=== PATIENT | male | born 2000 | race Caucasian/White ===

== ENCOUNTER → 2020-09-07 11:27 | Outpatient (CLI) | payer BC, SELFPAY ==
[2020-09-07 09:40] VITALS: BMI 29.3
[2020-09-07 12:14] LABS: Absolute Lymphocyte Count 1.86 X10^3/uL (0.83-4.51); Absolute Neutrophil Count 2.1 X10^3/uL (2.0-7.7); Basophil# 0.02 X10^3/uL; Basophil% 0.4 % (0-1); Eosinophil# 0.12 X10^3/uL; Eosinophils% 2.7 % (0-5); Hemoglobin 15.2 g/dL (13.0-16.5); Lymphocyte # 1.86 X10^3/ul (4.0); Lymphocyte % 41.2 % (19-41); Mean Corp Hgb Conc 33.8 g/dL (32-36); Mean Corpuscular Hgb 32.1 pg (27.0-32.0); Mean Corpuscular Volume 94.9 fL (80-94); Monocyte# 0.46 X10^3/uL; Monocyte% 10.2 % (0-10); NRBC Flagged by Analyzer 0 % (0-5); Neutrophil # 2.05 X10^3/uL (2.7-7.7); Neutrophil % 45.3 % (47-70); Platelet Count 252 K/mm3 (150-450); RBC Distribution Width CV 11.9 % (11.6-14.6); RBC Distribution Width SD 41.4 fl (35.1-43.9); Red Blood Count 4.74 M/mm3 (4.6-6.2); White Blood Count 4.5 K/mm3 (4.4-11.0)
[2020-09-07 12:41] LABS: Hemoglobin A1c 5.1 % (3.8-5.6)
[2020-09-07 12:53] LABS: Vitamin D,25 Hydroxy 12.8 ng/mL
[2020-09-07 13:07] LABS: ALB/GLOB Ratio 1.2 RATIO (0.9-2.4); AST(SGOT) 24 U/L (15-37); Alanine Aminotransfer ALT/SGPT 39 U/L (16-61); Albumin, Serum 4.1 g/dL (3.2-5.0); Alkaline Phosphatase 118 U/L (45-117); Anion Gap 6 (5-15); BUN 16 mg/dL (7-18); BUN/Creat Ratio 18.4 RATIO (10-20); Calcium,Total 9.1 mg/dL (8.5-10.1); Chloride 104 mmol/L (98-107); Cholesterol 158 mg/dL (200); Creatinine, Serum 0.87 mg/dL (0.70-1.30); EST Glomerular Filtration Rate 118 mL/min (>60); Est Glom Filt Rate - Afr Amer 142 mL/min (>60); Globulin 3.5 g/dL (2.2-4.2); Glucose 89 mg/dL (74-106); High Density Lipoprotein 54 mg/dL; Protein, Total 7.6 g/dL (6.4-8.2); Sodium Level 139 mmol/L (136-145); Thyroid Stim Hormone (TSH) 0.79 uIU/mL (0.358-3.74); Triglycerides 65 mg/dL; Very Low Density Lipoprotein 13 mg/dL (5-40)
== END ==
PROVIDERS: PCP Internal Medicine; Referring Provider Internal Medicine; Visit Provider Internal Medicine
DX: E11.9 Type 2 diabetes mellitus without complications (principal); E55.9 Vitamin D deficiency, unspecified; Z13.220 Encounter for screening for lipoid disorders
CPT/HCPCS: 36415; 80053; 80061; 82306; 83036; 84443; 85025

== ENCOUNTER → 2023-04-19 | Outpatient (CLI) | payer BC, SELFPAY ==
[2023-04-19 08:32] LABS: Mucous, Urine 0 SEEN /hpf (<or=2+); Red Blood Cells-Urine 0 SEEN /hpf (0-5); Squamous Epithelial Cells - UA 0 SEEN /hpf (0-5)
[2023-04-19 09:58] LABS: Color, Urine Yellow (Yellow); Glucose, Dipstick Normal (Normal); Ketone-Dipstick Negative (Negative); Leukocyte Esterase-Dipstick 500 /ul (Negative); Nitrite-Dipstick Negative (Negative); Occult Blood-Urine 10 /ul (Negative); Protein-Dipstick 15 mg/dl (Negative); Specific Gravity, Urine 1.015 (1.002-1.030); Urine Bilirubin Dipstick Negative (Negative); Urine Clarity Clear (Clear); Urine Urobilinogen Normal (Normal)
[2023-04-19 10:07] LABS: Bacteria RARE /hpf (None Seen); White Blood Cells 50-100 SEEN /hpf (0-5)
== END | disposition home or self-care (01) ==
PROVIDERS: PCP Internal Medicine; Visit Provider Physician Assistant
DX: R30.0 Dysuria (principal)
CPT/HCPCS: 81001; 87086

== ENCOUNTER → 2023-07-14 | Outpatient (CLI) | payer BC, SELFPAY ==
--- NOTE | 2023-07-14 06:49 | MRI_ITS ---
HISTORY: Tibial plateau pain after injury r/o plateau fracture. TECHNIQUE: Multiplanar and multisequence MR images of the LEFT knee were obtained without contrast. 197 images. COMPARISON: None. FINDINGS: BONE MARROW: Mild bone marrow edema of the lateral tibial plateau anteriorly and posteriorly. No acute fracture. JOINT SPACES: Alignment within normal limits without dislocation. Mild joint effusion. MENISCI: No medial or lateral meniscal tear. TENDONS: Intact quadriceps and patellar tendon mechanism. LIGAMENTS: Increased T2 signal and size the posterior cruciate ligament. No anterior cruciate ligament tear. Medial and lateral collateral ligaments also intact. CARTILAGE: Articular cartilage intact. SOFT TISSUES: 1.2 x 4.1 cm mildly heterogeneous subcutaneous fluid collection anteromedial to the proximal tibia. Mild lateral and medial subcutaneous edema. No popliteal cyst. MRI/Lower Ext Joint Only (Routine) IMPRESSION: Mild bone marrow contusions of the lateral tibial plateau without acute fracture. Sprain or partial tear of the posterior cruciate ligament. Pretibial subcutaneous hematoma extending medially. Mild joint effusion of the left knee. Electronically Signed: Ashley Matt MD at 11:53 EST ,
--- OUTSIDE RECORDS SUMMARY | 2023-07-14 07:21 | XMS RPT_ITS | CCD ---
Author Name Unknown Address [address] [place] [address] Organization [facility] Care Team Providers Care Utility Specialist Name Role Phone ARCHINAL, CHICA Unavailable Unavailable REFERRED, SELF Unavailable Unavailable ARCHINAL, CHICA Unavailable Unavailable Unavailable Primary Care Provider MELISSA Beckwith Referring Unavailable [facility] Primary Care Provider OLVIN Brody Referring Unavailable [facility] Primary Care Unavailable Problems Problem Classification Problem Date Documented Date Episodic/Chronic Administrative/social admission (4 sources) Patient encounter status; Translations: [Encounter for pre-employment examination] Onset: 07-02-2023 07-02-2023 Episodic Immunizations and screening for infectious disease (1 source) Encounter for screening for infections with a predominantly sexual mode of transmission; Translations: [Screening for STD (sexually transmitted disease)] Onset: 04-27-2023 Episodic Results Test Name Value Interpretation Reference Range Facil ity Encounters Encounter Date Encounter Type Care Provider Facility Start: 07-02-2023 End: 07-03-2023 ambulatory [facility] Start: 07-02-2023 End: 07-02-2023 Subsequent hospital visit by physician [facility] Ed Xr Exam Room 1 [facility] Radiology Procedures Date Procedure Procedure Detail Performing Clinician Start: 07-02-2023 Radiologic exam ches t single view Olvin Toure MD Work Phone: Start: 03-12-2020 Chest x-ray 1 view frontal Olvin Toure Work Phone: Plan of Treatment Date Care Activity Detail Author Start: 2059 RSV Immunization age d 60 or older (1 - 1-dose 60+ series) RSV Immunization aged 60 or older (1 - 1-dose 60+ series) [facility] Start: 2049 Zoster Vaccines (1 of 2) Zoster Vacc alice (1 of 2) [facility] Start: 02-28-2023 DTaP/Tdap/Td Vaccine s (7 - Td or Tdap) DTaP/Tdap/Td Vaccines (7 - Td or Tdap) [facility] Start: 02-02-2023 Influenza vaccination Influenza Vacc ine (#1) [facility] Start: 02-03-2020 Influenza vaccination Flu vaccine (# 1) [place], [place] Start: 2017 Hepatitis C screening Hepatitis C Sc reening [facility] Start: 2011 Depression Screening Depression Scre ening [facility] Start: 1999 Hepatitis B Vaccines (3 of 3 - 3-dose series) Hepatitis B Vaccines (3 of 3 - 3-dose series) [facility] Start: 1999 COVID-19 Vaccine (#1) COVID-19 Vacci ne (#1) [facility] Start: 1999 HIV screening HIV Screening [facility] OUTSIDE PROCEDURE SCAN OUTSIDE P ROCEDURE SCAN Procedures Ordered: 07/02/2023 [facility] Payers Date Payer Category Payer Unknown CORPORATE ACCOUN T [id number] 2023-Present ATTN OSIRIS MURRAY [address] [place] [address] Other [id number] 2023 Unknown [id number] 2022 Unknown [id number] Unknown [id number] Social History Date Type Detail Facility Tobacco smoking stat RUSTIS Unknown if ever smoked [place], [place] Start: 1999 Sex Assigned At Not on file [place], [place] Tobacco smoking stat RUSTIS Tobacco smoking consumption unknown [facility] Gender identity Not on file [facility] Progress note 04-23-2023 Note Date & Type Note Facility 04-23-2023 Note HNO ID: [id number] Author: Melissa Morton APRN.CAR SUPERVISOR Service: ? Author Type: Nurse Practitioner Type: Progress Notes Filed: 04/23/2023 6:48 PM Note Text: This note was created using NoteWriter. Mary Hernandez Keven is a 22 year old male. HPI by patient: David Evans is a 22 year old presenting to the office with the complaint of needing an std screening. Had urinary symptoms and was seen at [facility]. There was no testing done but he was treated with cipro based on symptoms. Wants to make sure he doesn't have an std. States I don't want to . Associated symptoms include nothing now. Had painful urination that improved with the cipro. Denies nausea, vomiting, back pain, abdominal pain, fever, lesions, and penile discharge. OTC not used. ALLERGIES No Known Allergies No family history on file. Active Ambulatory Problems No Active Ambulatory Problems Resolved Ambulatory Problems No Resolved Ambulatory Problems No Additional Past Medical History Review of Systems Constitutional: Negative. HENT: Negative. Eyes: Negative. Respiratory: Negative. Cardiovascular: Negative. Gastrointestinal: Negative. Endocrine: Negative. Genitourinary: Negative. Musculoskeletal: Negative. Skin: Negative. Neurological: Negative. Objective BP 154/93 Pulse 78 Resp 16 Wt 95.3 kg (210 lb) SpO2 98% Physical Exam Vitals reviewed. Constitutional: General: He is not in acute distress. Appearance: He is not ill-appearing, toxic-appearing or diaphoretic. Cardiovascular: Rate and Rhythm: Normal rate and regular rhythm. Pulmonary: Effort: Pulmonary effort is normal. Abdominal: General: Bowel sounds are normal. Palpations: Abdomen is soft. Tenderness: There is no abdominal tenderness. There is no right CVA tenderness, left CVA tenderness, guarding or rebound. Psychiatric: Behavior: Behavior is cooperative. Assessment and Plan (Z11.3) Screening for STD (sexually transmitted disease) (primary encounter diagnosis) Plan: SYPHILIS TOTAL W/REFLEX, HIV 1 2 COMBO(AG/AB),WITH REFLEX TO DIFFERENTIATION, HEPATITIS C ANTIBODY IA WITH CONFIRMATION, HEP B SURF AG SCRN, GONORRHEA/CHLAMYDIA NAAT, TRICHOMONAS VAGINALIS NAAT, URINE CULTURE UA is normal. Will send culture. -Urine to the lab. May go to any [facility] outpatient lab to have blood work complete. Will send Post-A-Vox code to activate, all results to Post-A-Vox. -No sexual contact until all results are final and all treatment is complete. -Aware that further treatment may be indicated based on results. -Warning symptoms: fever 101 F or higher, chills, flank pain, chest pain, or respiratory distress. -Be seen immediately with warning symptoms. If no improvement with Express Care treatment please be re-seen by primary care. May stop at the front maker to make a follow up to establish care. The patient will pursue further outpatient evaluation with the primary care physician or another Urgent Care/Express Care as outlined in the after visit summary. The patient is agreeable to this plan of care and follow-up instructions have been explained in detail. The patient has received these instructions in written format and have expressed an understanding of the after visit summary. Medical Decision Making: Level: 4 - Moderate I spent a total of 20 minutes on the date of the service which included preparing to see the patient, [id number] patient care, completing clinical documentation, obtaining and/or reviewing separately obtained history, performing a medically appropriate examination, counseling and educating the patient/family/caregiver, and ordering medications, tests, or procedures. [facility] Evaluation note Note Date & Type Note Facility documented in this encounter [facility] Purpose Family History No Family History Records FoundNo Family History Records FoundNo Family History Records FoundNo Family History Records Found Advance Directives No Advanced Directives Records FoundNo Advanced Directives Records FoundNo Advanced Directives Records FoundNo Advanced Directives Records Found Additional Source Comments (unrecognized sect ion and content) No Status Records FoundNo Status Records FoundNo Status Records FoundNo Status Records Found INFORMATION SOURCE (unrecogn ized section and content) DATE CREATED AUTHOR AUTHOR'S ORGANIZ ATION 03/17/2020 [facility] DATE CREATED AUTHOR AUTHOR'S ORGANIZ ATION 04/28/2023 [facility] DATE CREATED AUTHOR AUTHOR'S ORGANIZ ATION 07/03/2023 [facility] Care Teams (unrecognized sec tion and content) FOR RECORDS PERTAINING TO PATIENTS WHO ARE OR HAVE BEEN ENROLLED IN A CHEMICAL DEPENDENCY/SUBSTANCEABUSE PROGRAM, SOME INFORMATION MAY BE OMITTED. This clinical summary was aggregated from multiple sources. Caution should be exercised in using it in the provision of clinical care. This summary normalizes information from multiple sources, and as a consequence, information in this document may materially change the coding, format and clinical context of patient data. In addition, data may be omitted in some cases. CLINICAL DECISIONS SHOULD BE BASED ON THE PRIMARY CLINICAL RECORDS. [employer] provides no warranty or guarantee of the accuracy or completeness of information in this document.
== END | disposition home or self-care (01) ==
PROVIDERS: PCP Internal Medicine; Referring Provider Internal Medicine; Visit Provider Internal Medicine
DX: M25.562 Pain in left knee (principal); S80.02XA Contusion of left knee, initial encounter; X58.XXXA Exposure to other specified factors, initial encounter
CPT/HCPCS: 73721